=== PATIENT | male | born 1990 | race Caucasian/White ===

== ENCOUNTER 2016-11-19 14:15 | Emergency (ER) | payer OTHER ==
[2016-11-19] MEDS ORDERED: Ibuprofen TAB* 400 MG PO ONE (14:48)
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
--- NOTE | 2016-11-19 15:18 | RAD ---
INDICATION: Left chest and upper left side pain x4 days COMPARISON: Chest x-ray dated June 07, 2016 TECHNIQUE: 3 views of the AP chest and left ribs were obtained. FINDINGS: No fracture or significant focal osseous abnormality is seen. No pneumothorax is apparent. The heart and lungs appear normal in the AP projection. IMPRESSION: NO EVIDENCE FOR FRACTURE, IF THE PATIENT'S SYMPTOMS PERSIST RECOMMEND FOLLOW-UP IMAGING.
[2016-11-19 15:45] VITALS: BP 100/68
== END 2016-11-19 15:36 | disposition home or self-care (01) ==
LOC: ED 14:15
DX: S20.212A Contusion of left front wall of thorax, initial encounter (principal); W50.0XXA Accidental hit or strike by another person, initial encounter; Y93.89 Activity, other specified; Y92.89 Other specified places as the place of occurrence of the external cause
CPT/HCPCS: 99282; A9270-GY

== ENCOUNTER 2017-02-05 14:46 | Inpatient (IN) | payer MEDICAID, OTHER ==
[2017-02-05 15:31] LABS: Hematocrit 47 % (42-52); Hemoglobin 15.7 g/dl (14.0-18.0); Mean Corpuscular HGB Conc 34 g/dl (31-36); Mean Corpuscular Hemoglobin 31 pg (27-31); Mean Corpuscular Volume 92 fL (80-94); Mean Platelet Volume 10 um3 (7.4-10.4); Red Blood Count 5.09 10^6/ul (4.0-5.4); Red Cell Distribution Width 14 % (10.5-15); White Blood Count 9.6 10^3/ul (3.5-10.8)
[2017-02-05 15:36] LABS: Benzodiazepine Urine Screen None Detected (None Detect)
[2017-02-05 15:37] LABS: Urine Bacteria Absent (Absent); Urine Bilirubin Negative (Negative); Urine Glucose Negative (Negative); Urine Nitrite Negative (Negative)
[2017-02-05 15:46] LABS: ALT 13 U/L (7-52); AST 20 U/L (13-39); Albumin 4.2 g/dL (3.2-5.2); Alkaline Phosphatase 56 U/L (34-104); Anion Gap 6 mmol/L (2-11); BUN/Creatinine Ratio 12.8 (8-20); Blood Urea Nitrogen 11 mg/dL (6-24); CO2 Carbon Dioxide 25 mmol/L (22-32); Calcium 9.1 mg/dL (8.6-10.3); Chloride 106 mmol/L (101-111); EGFR African American 138.2 (>60); EGFR Non-African American 107.5 (>60); Globulin 2.9 g/dL (2-4); Glucose 99 mg/dL (70-100); Potassium 3.9 mmol/L (3.5-5.0); Sodium 137 mmol/L (133-145); Total Protein 7.1 g/dL (6.4-8.9)
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
[2017-02-05 16:23] LABS: Acetaminophen < 15 mcg/mL; Alcohol < 10 mg/dL (<10); Salicylate < 2.50 mg/dL (<30)
[2017-02-05 16:28] LABS: TSH (Thyroid Stimulating Horm) 0.55 mcIU/mL (0.34-5.60)
[2017-02-06] MEDS ORDERED: Al Hydrox/Mg Hydrox/Simet LIQ* 30 ML UDC PO PRN (00:57)
[2017-02-06] MEDS ORDERED: Mouth Piece, Nicotine* 1 EACH CARTRIDGE INH SCH (00:57)
[2017-02-06] MEDS: Vitamin THERAPEUTIC TAB PO SCH (09:17)
[2017-02-06] MEDS: Nicotine PATCH 21 MG/24 HR* PATCH TRANSDERM SCH (09:17)
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
[2017-02-06] MEDS: Sertraline* 50 MG TAB PO SCH (13:56)
[2017-02-06] MEDS: Nicotine Inhaler* 10 MG AMP INH PRN ×4 (13:56→22:15)
[2017-02-06] MEDS: Nicotine Patch Removal NOTE PATCH OFF SCH (20:20)
[2017-02-06] MEDS: traZODone TAB* 100 MG PO PRN (22:15)
[2017-02-07] MEDS: Vitamin THERAPEUTIC TAB PO SCH (08:21)
[2017-02-07] MEDS: Sertraline* 50 MG TAB PO SCH (08:21)
[2017-02-07] MEDS: Nicotine PATCH 21 MG/24 HR* PATCH TRANSDERM SCH (08:21)
[2017-02-07] MEDS: Nicotine Inhaler* 10 MG AMP INH PRN ×7 (08:22→21:11)
[2017-02-07] MEDS: Acetaminophen TAB* 325 MG PO PRN ×2 (10:01→15:13)
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
[2017-02-07] MEDS: Nicotine Patch Removal NOTE PATCH OFF SCH (20:12)
[2017-02-07] MEDS: traZODone TAB* 100 MG PO PRN (22:02)
[2017-02-08] MEDS: Nicotine PATCH 21 MG/24 HR* PATCH TRANSDERM SCH (08:13)
[2017-02-08] MEDS: Vitamin THERAPEUTIC TAB PO SCH (08:15)
[2017-02-08] MEDS: Nicotine Inhaler* 10 MG AMP INH PRN ×6 (08:15→21:03)
[2017-02-08] MEDS: Sertraline* 50 MG TAB PO SCH (08:16)
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
--- NOTE | 2017-02-08 13:08 | PN ---
[facility]: Group Therapy Note - Service Type Service Type: [id number] Group Psychotherapy - Cognitive Behavioral Group Therapy ( CBT):Patient was attentive and participatory in CBT programming this morning, and remained in good behavioral control. Patient expressed positive insights regarding relevant treatment interventions and goals.
[2017-02-08] MEDS: Acetaminophen TAB* 325 MG PO PRN (14:11)
[2017-02-08] MEDS: Nicotine Patch Removal NOTE PATCH OFF SCH (21:03)
[2017-02-08] MEDS: traZODone TAB* 100 MG PO PRN (22:04)
[2017-02-09] MEDS: Acetaminophen TAB* 325 MG PO PRN (04:17)
[2017-02-09] MEDS: Sertraline* 50 MG TAB PO SCH (08:03)
[2017-02-09] MEDS: Nicotine PATCH 21 MG/24 HR* PATCH TRANSDERM SCH (08:03)
[2017-02-09] MEDS: Vitamin THERAPEUTIC TAB PO SCH (08:03)
[2017-02-09] MEDS: Nicotine Inhaler* 10 MG AMP INH PRN (08:04)
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
[2017-02-09 10:33] VITALS: BP 123/65
== END 2017-02-09 09:55 | disposition home or self-care (01) | DRG 754 ==
LOC: ED 14:46 → BSU 22:30
PROVIDERS: ADMIT Psychiatry & Neurology Psychiatry; ATTEND Psychiatry & Neurology Psychiatry
DX: F43.21 Adjustment disorder with depressed mood (principal); R45.851 Suicidal ideations; F12.10 Cannabis abuse, uncomplicated; Z79.891 Long term (current) use of opiate analgesic
CPT/HCPCS: 36415; 80053; 80307; 80320; 80329; 81003; 81015; 84443; 85025; 87086; 90853; 99222; 99231; 99238; A9270-GY; G0480

== ENCOUNTER → 2017-02-15 09:32 | Emergency (ER) | payer MEDICAID, OTHER ==
[2017-02-15 09:43] VITALS: BP 122/76
== END | disposition left against medical advice (07) ==
LOC: ED 09:32
DX: K08.89 Other specified disorders of teeth and supporting structures (principal); Z53.21 Procedure and treatment not carried out due to patient leaving prior to being seen by health care provider

== ENCOUNTER 2017-07-18 14:12 | Emergency (ER) | payer SELFPAY ==
[2017-07-18] MEDS ORDERED: Ketorolac INJ* 60 MG/2 ML VIAL IM ONE (15:22)
[2017-07-18] MEDS ORDERED: Dexamethasone IV* 4 MG/ML 1 ML (4 MG) IM ONE (15:22)
[2017-07-18] MEDS ORDERED: Cyclobenzaprine TAB* 10 MG PO ONE (15:22)
--- NOTE | 2017-07-18 15:34 | ED ---
Back Pain - HPI Summary HPI Summary: 27 male presents to ED with complaints of right sided flank/back pain. Patient states it began about 3 days ago. States the pain came 3 days ago, went away, and then returned after returning back to daily activities and over use. States he woke up with it to begin with. Hurts worse with laying on that side or movement. Patient tried taking tylenol and ibuprofen without relief, last doses being yesterday. No known trauma or injury. Denies urinary symptoms such as frequency, urgency, difficulty and dysuria. States he was unable to sleep last night due to the discomfort, every time he turned he would wake up from the pain. Denies rash, being bit by a tick recently and fever. No nausea, vomiting or abdominal pain. Denies chest pain and trouble breathing. No other complaints. No PMHx. No other medications other than OTC analgesics. No radiation. No numbness/tingling or weakness. No saddle anesthesia, bladder/ bowel incontinence. No IV drug use. - History of Current Complaint Chief Complaint: EDBackInjuryPain Stated Complaint: LOW RIGHT SIDE BACK PAIN Time Seen by Provider: 07/18/17 14:57 Hx Obtained From: Patient Onset/Duration: Sudden Onset, Lasting Days, Still Present, Worse Since Onset/Duration: Started Days Ago Timing: Constant Back Pain Location: Is Discrete @ - right side back/flank Severity Initially: Mild Severity Currently: Moderate Pain Intensity: 6 Pain Scale Used: 0-10 Numeric Character: Aching Aggravating Symptom(s): Movement, Other - laying on that side, touch Alleviating Symptom(s): Rest, Position, OTC Meds - 600mg ibuprofen gave some relief Associated Signs And Symptoms: Positive: Flank Pain - right. Negative: Swelling , Redness, Bruising, Weakness, Numbness, Abdominal Pain, Bladder Incontinence, Bowel Incontinence, Pain with Weight Bearing - Risk Factors AAA Risk Factors: Negative TAD Risk Factors: Negative Cauda Equina Risk Factors: Negative Epidural Abscess Risk Factors: Negative - Allergies/Home Medications Allergies/Adverse Reactions: Allergies Allergy/AdvReac Type Severity Reaction Status Date / Time No Known Allergies Allergy Verified 07/18/17 14:16 PMH/Surg Hx/FS Hx/Imm Hx Endocrine/Hematology History: Denies: Hx Diabetes Cardiovascular History: Denies: Hx Hypertension Respiratory History: Denies: Hx Asthma Sensory History: Denies: Hx Contacts or Glasses, Hx Hearing Aid Opthamlomology History: Denies: Hx Contacts or Glasses Psychiatric History: Reports: Hx Anxiety, Hx Depression, Hx of Violent Episodes Against Others Denies: Hx Eating Disorder, Hx Inpatient Treatment, Hx Community Mental Health Tx, Hx Suicide Attempt, Hx Substance Abuse - Surgical History Surgery Procedure, Year, and Place: n/a - Immunization History Immunizations Up to Date: Yes Infectious Disease History: No Infectious Disease History: Denies: Traveled Outside the [place] in Last 30 Days - Family History Known Family History: Positive: None, Other - cervical CA - Social History Alcohol Use: Rare Hx Substance Use: No Substance Use Type: Reports: None Hx Tobacco Use: No Smoking Status (MU): Never Smoked Tobacco Amount Used/How Often: 1 PPD, has not used any other tobacco products in the last 30 days. Review of Systems Constitutional: Negative Cardiovascular: Negative Respiratory: Negative Positive: Arthralgia, Myalgia Skin: Negative Neurological: Negative All Other Systems Reviewed And Are Negative: Yes Physical Exam Triage Information Reviewed: Yes Vital Signs On Initial Exam: Initial Vitals Temp Pulse Resp BP Pulse Ox 98.0 F 66 20 125/61 99 07/18/17 14:15 07/18/17 14:15 07/18/17 14:15 07/18/17 14:15 07/18/17 14:15 Vital Signs Reviewed: Yes Appearance: Positive: Well-Appearing, No Pain Distress, Well-Nourished Skin: Positive: Warm, Skin Color Reflects Adequate Perfusion, Dry. Negative: Numb, Cyanosis @, Pale, Erythema @ Head/Face: Positive: Normal Head/Face Inspection Eyes: Positive: Conjunctiva Clear ENT: Positive: Hearing grossly normal Neck: Positive: Supple, Nontender Respiratory/Lung Sounds: Positive: Clear to Auscultation, Breath Sounds Present. Negative: Rales, Rhonchi, Wheezes Cardiovascular: Positive: Normal, RRR, Pulses are Symmetrical in both Upper and Lower Extremities - 2+ radial and pedal. Negative: Murmur, Rub Abdomen Description: Positive: Nontender, Soft, CVA Tenderness (R), CVA Tenderness (L). Negative: Bruit, Distended, Guarding, McBurney's Point Tenderness Bowel Sounds: Positive: Present Musculoskeletal: Positive: Normal, Strength/ROM Intact, Other - pain on palpation of right flank T12-L2 area. Negative: Limited @, Interruption @, Pain @, Edema Left, Edema Right Neurological: Positive: Normal, Sensory/Motor Intact, Alert, Oriented to Person Place, Time, CN Intact II-III, Reflexes Intact, NV Bundle Intact Distally, Normal Gait - Melita Coma Scale Coma Scale Total: 15 Diagnostics - Vital Signs Vital Signs Temp Pulse Resp BP Pulse Ox 07/18/17 14:15 98.0 F 66 20 125/61 99 - Laboratory Lab Statement: Any lab studies that have been ordered have been reviewed, and results considered in the medical decision making process. Re-Evaluation - Re-Evaluation First Eval Re-Evaluation Time: 16:00 Change: Improved - had some relief after medications, updated on urine results. discussed treatment and plan, patient agrees and understands, all questions answered. Will obtain CT due to blood in urine Back Pain Course/Dx - Course Course Of Treatment: urinalysis obtained and showed 2+ blood. due to blood in urine, description and location of patient's pain Ct scan ordered to rule out renal calculi. no concern for injury/bony injury requiring xray. given toradol, norflex and dexa had relief. appears to be MSK related however will wait CT results to rule out renal calucli, as this was also a patient concern. Patient was signed out to Ayanna Dee shift change pending CT results. - Diagnoses Differential Diagnosis/HQI/PQRI: Positive: Herniated Disc, Strain, Sprain, Other - renal calculi Provider Diagnoses: Flank pain - Provider Notifications Discussed Care Of Patient With: Ayanna Hodge PA-C Time Discussed With Above Provider: 16:00 Discharge - Discharge Plan Condition: Stable Disposition: OTHER Discharge Disposition Comment: signed out to Ayanna Hodge PA-C at shift change Prescriptions: Cyclobenzaprine TAB* [Flexeril 10 MG TAB*] 10 mg PO TID PRN #9 tab PRN Reason: Pain Lidocaine PATCH 5%* [Lidoderm 5% Patch*] 1 patch TRANSDERM DAILY #7 patch Patient Education Materials: Low Back Strain (ED), Acute Low Back Pain (ED) Referrals: [facility] [Outside] Additional Instructions: Rest, avoid strenuous activity. Heating pad during day ice at night. Take muscle relaxers three times a day Apply lidocaine patches to area for up to 12 hours in one 24 hour period Use ibuprofen or Tylenol for pain every 6 hours. Any new or worsening symptoms, as we discussed ( fever, increased pain, urinary difficulty, burning, pain, abdominal pain, nausea and vomiting) please return to ED promptly. Follow up with PCP.
[2017-07-18 15:58] LABS: Urine Bacteria Absent (Absent); Urine Bilirubin Negative (Negative); Urine Glucose Negative (Negative); Urine Nitrite Negative (Negative)
--- NOTE | 2017-07-18 16:38 | RAD ---
Indication: Evaluate for renal calculus. CT of the abdomen and pelvis was performed without oral or IV contrast administration. Coronal and sagittal reconstructed images were obtained. The lung bases demonstrate no pleural fluid, nodules or masses. Heart is of normal size without evidence of pericardial effusion. Liver is normal in size. No focal lesions or intrahepatic ductal dilatation is noted. The spleen is normal in size. The pancreas demonstrates no mass or pancreatic duct dilatation. The common duct is not dilated. No adrenal lesions are noted. The kidneys demonstrate no hydronephrosis in either kidney. No retroperitoneal lymphadenopathy is noted. Aorta and inferior vena cava are unremarkable. No dilated loops of bowel are noted. The colon is filled with stool. The prostate is otherwise unremarkable. No hernias are noted. No free fluid is identified. No hernias are noted. IMPRESSION: No evidence of obstructive uropathy is noted. No abnormal masses or fluid collections are noted.
--- NOTE | 2017-07-18 16:52 | PN ---
Progress Note - Progress Note Date of Service: 07/18/17 Note: patient signed out by Brenda HERNANDES pending CT CT: IMPRESSION: No evidence of obstructive uropathy is noted. No abnormal masses or fluid collections are noted. discussed results with patient. patient feeling better with treatment provided in ED so will send script for flexeril and lidocaine patch in continue at home. explained pain likely muscular. told to establish care with primary. patient understand and agrees with plan Diagnosis: back pain Condition: stable Disposition: home
[2017-07-18 17:14] VITALS: BP 138/65
== END 2017-07-18 17:15 ==
LOC: ED 14:12
DX: R10.84 Generalized abdominal pain (principal)
CPT/HCPCS: 74176; 81003; 81015; 96372; 99282; A9270-GY; J1100; J1885

== ENCOUNTER 2017-08-27 18:08 | Emergency (ER) | payer SELFPAY ==
[2017-08-27 18:13] VITALS: BP 133/78
[2017-08-27] MEDS ORDERED: Clindamycin CAP* 150 MG PO ONE ×2 (19:00)
[2017-08-27] MEDS ORDERED: Ibuprofen TAB* 800 MG PO ONE (19:00)
--- NOTE | 2017-08-27 19:16 | ED ---
Throat Pain/Nasal Congestion - HPI Summary HPI Summary: Pt here w/ Rt lower jaw swelling x 5 days. Believes it's from a tooth infection as he's had these before. Started taking a friend's augmentin for a couple of days but no relief so started taking some old left over clindamycin for a couple days - no change. Had an odd taste in his mouth today - drainage? Denies fever, chills, nausea, vomiting, neck pain, headache, otalgia. Insurance ran out so hasn't called dentist yet but plans on reapplying for this - will call tomorrow to establish insurance and make appt w/ dentist. - History of Current Complaint Chief Complaint: EDDentalPain Time Seen by Provider: 08/27/17 18:19 Hx Obtained From: Patient, Family/Aligner - male friend - Allergies/Home Medications Allergies/Adverse Reactions: Allergies Allergy/AdvReac Type Severity Reaction Status Date / Time No Known Allergies Allergy Verified 07/18/17 14:16 PMH/Surg Hx/FS Hx/Imm Hx Previously Healthy: Yes Endocrine/Hematology History: Denies: Hx Diabetes Cardiovascular History: Denies: Hx Hypertension Respiratory History: Denies: Hx Asthma Sensory History: Denies: Hx Contacts or Glasses, Hx Hearing Aid Opthamlomology History: Denies: Hx Contacts or Glasses Psychiatric History: Reports: Hx Anxiety, Hx Depression, Hx of Violent Episodes Against Others Denies: Hx Eating Disorder, Hx Inpatient Treatment, Hx Community Mental Health Tx, Hx Suicide Attempt, Hx Substance Abuse - Surgical History Surgery Procedure, Year, and Place: n/a Infectious Disease History: No Infectious Disease History: Denies: Traveled Outside the [place] in Last 30 Days - Family History Known Family History: Positive: None, Other - cervical CA - Social History Occupation: Unemployed Lives: Dormitory/Roommates - floating from house to house w/ friends Alcohol Use: Rare Hx Substance Use: No Substance Use Type: Reports: Marijuana Hx Tobacco Use: Yes Smoking Status (MU): Current Every Day Smoker - trying to quit - has patches and nicotrol inhaler Amount Used/How Often: 1 PPD, has not used any other tobacco products in the last 30 days. Review of Systems Constitutional: Negative Negative: Fever, Chills, Fatigue Eyes: Negative Positive: Dental Pain. Negative: Sore Throat, Ear Ache, Nasal Discharge Cardiovascular: Negative Respiratory: Negative Negative: Shortness Of Breath Gastrointestinal: Negative Positive: no symptoms reported Musculoskeletal: Negative Skin: Negative Neurological: Negative Psychological: Normal All Other Systems Reviewed And Are Negative: Yes Physical Exam Triage Information Reviewed: Yes Vital Signs On Initial Exam: Initial Vitals Temp Pulse Resp BP Pulse Ox 99.0 F 76 16 133/78 100 08/27/17 18:08 08/27/17 18:08 08/27/17 18:08 08/27/17 18:08 08/27/17 18:08 Vital Signs Reviewed: Yes Appearance: Positive: Well-Appearing, Pain Distress - mild Skin: Positive: Warm, Dry - no overlying erythema Head/Face: Positive: Other - Rt lower jaw/cheek w/ focal edema - TTP - on opposing side of lip within buccal mucosa, there is erythema and edema with a central opening which is draining seropurulent d/c Eyes: Positive: Normal, EOMI, Conjunctiva Clear. Negative: Conjunctiva Inflammed, Discharge ENT: Positive: Normal ENT inspection, Hearing grossly normal, Pharynx normal. Negative: Nasal congestion, Nasal drainage Dental: Positive: Gross Decay/Caries @ - diffuse Neck: Positive: Supple, Nontender, No Lymphadenopathy Respiratory/Lung Sounds: Positive: Breath Sounds Present. Negative: Stridor, Wheezes Cardiovascular: Positive: Normal Musculoskeletal: Positive: Normal, Strength/ROM Intact Neurological: Positive: Normal, Sensory/Motor Intact, Alert, Oriented to Person Place, Time, CN Intact II-III Psychiatric: Positive: Normal - [place] Coma Scale Coma Scale Total: 15 Diagnostics - Vital Signs Vital Signs Temp Pulse Resp BP Pulse Ox 08/27/17 18:08 99.0 F 76 16 133/78 100 - Laboratory Lab Statement: Any lab studies that have been ordered have been reviewed, and results considered in the medical decision making process. EENT Course/Dx - Course Course Of Treatment: Suspect abscess arose from dental impairment - since it's already draining which seems to have started today, provided guidance on how to continue drainage. Anbx rx'd and advised f/u w/ dental. He will return to ED if danger s/sx present. - Diagnoses Provider Diagnoses: Abscess of mouth Discharge - Discharge Plan Condition: Stable Disposition: HOME Prescriptions: Chlorhexidine MOUTHWASH 0.12%* [Peridex Mouth Wash 0.12%*] 15 ml MT BID #1 btl Clindamycin HCl [Clindamycin 150 MG CAP*] 300 mg PO Q8HR #27 cap Ibuprofen TAB* [Motrin TAB* 600 MG] 600 mg PO Q6H PRN #20 tab PRN Reason: Pain Patient Education Materials: Dental Abscess (ED) Referrals: No Primary Care Phys,NOPCP [Primary Care Provider] - Additional Instructions: Complete antibiotic capsules and mouthwash as directed Use warm compress to soften abscess and encouraged continued draining Use salt water rinses to reduce swelling/encourage drainage You may take ibuprofen with food for pain/swelling Follow-up with dentist MEGHANN - call tomorrow to schedule an appointment *If you develop headache, eye pain, neck pain, fever, worsening of facial swelling, trouble breathing or swallowing, return to ED
== END 2017-08-27 19:19 | disposition home or self-care (01) ==
LOC: ED 18:08
DX: K12.2 Cellulitis and abscess of mouth (principal); K08.89 Other specified disorders of teeth and supporting structures; F17.210 Nicotine dependence, cigarettes, uncomplicated
CPT/HCPCS: 99282; A9270-GY

== ENCOUNTER 2017-10-14 12:21 | Emergency (ER) | payer MEDICAID ==
[2017-10-14] MEDS ORDERED: Orphenadrine Citrate IV* 30 MG/ML 2 ML VIAL IM ONE (14:44)
[2017-10-14] MEDS ORDERED: Ketorolac INJ* 60 MG/2 ML VIAL IM ONE (14:44)
--- NOTE | 2017-10-14 14:49 | ED ---
Back Pain - HPI Summary HPI Summary: 27 male presents to ED with complaints of mid back pain that began yesterday and has worsened today. States he was just sitting when he began to have a pressure sensation in his epigastric abdomen after drinking soda, improved after a few minutes however then move to his mid back. Tried taking ibuprofen and 1 gabapentin without much relief. Patient states he has had similar back pain however in a lower area rather than mid back like now. Denies known fever however felt like he had chills yesterday. Denies urinary frequency, urgency, burning or concern for STDs. No other complaints. No abdominal pain or nausea/ vomiting. Normal bowel movements. No SOB or chest pain. No recent known trauma or injury. No other complaints. Has not taken any medication today. No PMHx other than frequent dental abscesses. Also tried having his significant other massage back without relief. Laying down makes pain worse, sitting makes it somewhat better. Describes it as a dull ache that worsens when laying and becomes sharp. No swelling, bruising, edema, numbness/tingling, saddle anesthesia, weakness or bladder/bowel incontinence. - History of Current Complaint Chief Complaint: EDBackInjuryPain Stated Complaint: BACK PAIN Time Seen by Provider: 10/14/17 12:31 Hx Obtained From: Patient Onset/Duration: Sudden Onset, Lasting Days - 1-2, Still Present, Worse Since Onset/Duration: Started Days Ago - yesterday, Still Present Timing: Constant Back Pain Location: Is Discrete @ - mid back t10-L2 region Severity Initially: Moderate Severity Currently: Moderate Pain Intensity: 7 Pain Scale Used: 0-10 Numeric Character: Aching Aggravating Symptom(s): Other - laying Alleviating Symptom(s): Position Associated Signs And Symptoms: Positive: Negative. Negative: Swelling, Redness , Bruising, Weakness, Numbness, Tingling, Abdominal Pain, Bladder Incontinence, Bowel Incontinence, Weight Loss, Pain with Weight Bearing - Risk Factors AAA Risk Factors: Smoking TAD Risk Factors: Smoking Cauda Equina Risk Factors: Negative Epidural Abscess Risk Factors: Negative - Allergies/Home Medications Allergies/Adverse Reactions: Allergies Allergy/AdvReac Type Severity Reaction Status Date / Time No Known Allergies Allergy Verified 07/18/17 14:16 PMH/Surg Hx/FS Hx/Imm Hx Endocrine/Hematology History: Denies: Hx Diabetes Cardiovascular History: Denies: Hx Hypertension Respiratory History: Denies: Hx Asthma Sensory History: Denies: Hx Contacts or Glasses, Hx Hearing Aid Opthamlomology History: Denies: Hx Contacts or Glasses Psychiatric History: Reports: Hx Anxiety, Hx Depression, Hx of Violent Episodes Against Others Denies: Hx Eating Disorder, Hx Inpatient Treatment, Hx Community Mental Health Tx, Hx Suicide Attempt, Hx Substance Abuse - Surgical History Surgery Procedure, Year, and Place: n/a - Immunization History Immunizations Up to Date: Yes Infectious Disease History: No Infectious Disease History: Denies: Traveled Outside the US in Last 30 Days - Family History Known Family History: Positive: None, Other - cervical CA - Social History Alcohol Use: Rare Hx Substance Use: No Substance Use Type: Reports: Marijuana Hx Tobacco Use: Yes Smoking Status (MU): Current Every Day Smoker Amount Used/How Often: 1 PPD, has not used any other tobacco products in the last 30 days. Review of Systems Constitutional: Negative Cardiovascular: Negative Respiratory: Negative Positive: Arthralgia, Myalgia Skin: Negative Neurological: Negative All Other Systems Reviewed And Are Negative: Yes Physical Exam Triage Information Reviewed: Yes Vital Signs On Initial Exam: Initial Vitals Temp Pulse Resp BP Pulse Ox 99.2 F 81 20 129/76 98 10/14/17 12:27 10/14/17 12:27 10/14/17 12:27 10/14/17 12:27 10/14/17 12:27 Vital Signs Reviewed: Yes Appearance: Positive: Well-Appearing, No Pain Distress, Well-Nourished Skin: Positive: Warm, Skin Color Reflects Adequate Perfusion, Dry. Negative: Cold, Cyanosis @, Pale, Erythema @ Head/Face: Positive: Normal Head/Face Inspection ENT: Positive: Hearing grossly normal Neck: Positive: Supple, Nontender Respiratory/Lung Sounds: Positive: Clear to Auscultation, Breath Sounds Present. Negative: Rales, Rhonchi, Wheezes Cardiovascular: Positive: Normal, RRR, Pulses are Symmetrical in both Upper and Lower Extremities - 2+. Negative: Murmur, Rub Abdomen Description: Positive: Nontender, No Organomegaly, Soft, CVA Tenderness (R), CVA Tenderness (L). Negative: Distended, Guarding, Peritoneal Signs, Pulsatile Mass Bowel Sounds: Positive: Present Musculoskeletal: Positive: Normal, Strength/ROM Intact, Pain @ - T10-L2 area, Other - no crepitus step off or obvious deformity. Negative: Limited @, Interruption @, Edema Left, Edema Right Neurological: Positive: Normal, Sensory/Motor Intact, Alert, Oriented to Person Place, Time, Reflexes Intact, NV Bundle Intact Distally, Normal Gait Diagnostics - Vital Signs Vital Signs Temp Pulse Resp BP Pulse Ox 10/14/17 12:27 99.2 F 81 20 129/76 98 - Laboratory Lab Statement: Any lab studies that have been ordered have been reviewed, and results considered in the medical decision making process. - CT thoracic, lumbosacral CT Interpretation: No Acute Changes - MILD DEGENERATIVE DISC DISEASE AND FACET OSTEOARTHRITIS. There is a mild dorsal scoliosis convex toward the right side. The vertebra are otherwise in normal alignment. No fracture is seen. There is mild anterior endplate spurring at the T2-T3 level. The intervertebral disc spaces appear relatively maintained. No significant spinal canal narrowing is seen. There is mild bilateral apical pleural-parenchymal scarring. IMPRESSION : NO EVIDENCE FOR FRACTURE OR SPINAL CANAL NARROWING. IF THE PATIENT'S SYMPTOMS PERSIST RECOMMEND FOLLOW-UP MR IMAGING. CT Interpretation Completed By: Radiologist Re-Evaluation - Re-Evaluation First Eval Re-Evaluation Time: 15:30 Change: Improved - had relief after medication, updated on imaging results. waiting on urinalysis. Second Eval Re-Evaluation Time: 16:00 Change: Improved - feeling better, updated on results, ready to be d/c Back Pain Course/Dx - Diagnoses Provider Diagnoses: Back pain Discharge - Discharge Plan Condition: Stable Disposition: HOME Patient Education Materials: Back Pain (ED) Referrals: [facility] [place] [facility] [Outside] Additional Instructions: Take prescribed medication to help with pain. Take for the next 3-5 for them to take full effect. Rest and heat/ice. Avoid heavy lifting and strenuous exercise. Any new or worsening symptoms please seek medical attention promptly. Follow up with pcp.
--- NOTE | 2017-10-14 15:16 | RAD ---
INDICATION: Back pain. COMPARISON: There are no prior studies available for comparison. TECHNIQUE: Contiguous axial sections were obtained beginning above the T12 vertebra and continuing through the L5-S1 disc space. Images were reconstructed in the sagittal and coronal planes. FINDINGS: The vertebra are in normal alignment. No fracture is seen. At the L4-L5 level there is a mild broad-based disc bulge. No significant spinal canal or neural foraminal narrowing is seen. At the L5-S1 level there is a mild broad-based disc bulge and mild hypertrophic changes within the facet joints. No significant spinal canal or neural foraminal narrowing is seen. IMPRESSION: MILD DEGENERATIVE DISC DISEASE AND FACET OSTEOARTHRITIS.
--- NOTE | 2017-10-14 15:25 | RAD ---
INDICATION: Back pain. COMPARISON: There are no prior studies available for comparison. TECHNIQUE: Contiguous axial sections were obtained beginning above the C7 vertebra and scanning through the T12 vertebra. Images were reconstructed in the sagittal and coronal planes. FINDINGS: There is a mild dorsal scoliosis convex toward the right side. The vertebra are otherwise in normal alignment. No fracture is seen. There is mild anterior endplate spurring at the T2-T3 level. The intervertebral disc spaces appear relatively maintained. No significant spinal canal narrowing is seen. There is mild bilateral apical pleural-parenchymal scarring. IMPRESSION: NO EVIDENCE FOR FRACTURE OR SPINAL CANAL NARROWING. IF THE PATIENT'S SYMPTOMS PERSIST RECOMMEND FOLLOW-UP MR IMAGING.
[2017-10-14 15:54] LABS: Urine Appearance Clear; Urine Blood 1+ (Negative); Urine Color Yellow; Urine Ketones Negative (Negative); Urine Protein Negative (Negative); Urine Specific Gravity 1.012 (1.010-1.030); Urine Urobilinogen Negative (Negative)
[2017-10-14 16:21] VITALS: BP 124/62
== END 2017-10-14 16:20 | disposition home or self-care (01) ==
LOC: ED 12:21
DX: M54.9 Dorsalgia, unspecified (principal); M51.36 Other intervertebral disc degeneration, lumbar region; M47.816 Spondylosis without myelopathy or radiculopathy, lumbar region; F41.9 Anxiety disorder, unspecified; F32.9 Major depressive disorder, single episode, unspecified; F17.210 Nicotine dependence, cigarettes, uncomplicated
CPT/HCPCS: 72128; 72131; 81003; 81015; 96372; 99282; J1885; J2360

== ENCOUNTER 2017-12-24 16:05 | Emergency (ER) | payer MEDICAID, OTHER ==
[2017-12-24 17:21] LABS: ABS Basophils 0 10^3/ul (0-0.2); ABS Eosinophils 0.1 10^3/ul (0-0.6); ABS Lymphocytes 1.9 10^3/ul (1.0-4.8); ABS Monocytes 0.9 10^3/ul (0-0.8); ABS Neutrophils 5.8 10^3/ul (1.5-7.7); ABS Nucleated RBC 0 10^3/ul; Eosinophil % 1.1 % (0-6); Hematocrit 47 % (42-52); Hemoglobin 16.3 g/dl (14.0-18.0); Lymphocyte % 22.1 % (25-47); Mean Corpuscular HGB Conc 35 g/dl (31-36); Mean Corpuscular Hemoglobin 31 pg (27-31); Mean Corpuscular Volume 91 fL (80-94); Mean Platelet Volume 9.9 um3 (7.4-10.4); Nucleated Red Blood Cells % 0.1; Platelet Count 191 10^3/ul (150-450); Red Blood Count 5.18 10^6/ul (4.0-5.4); Red Cell Distribution Width 13 % (10.5-15); White Blood Count 8.8 10^3/ul (3.5-10.8)
[2017-12-24 17:34] LABS: INR 0.99 (0.77-1.02)
[2017-12-24 17:40] LABS: EGFR Non-African American 96.3 (>60)
[2017-12-24 17:44] LABS: Urine Appearance Clear; Urine Blood Negative (Negative); Urine Color Yellow; Urine Ketones Trace (Negative); Urine Protein Negative (Negative); Urine Urobilinogen Negative (Negative)
[2017-12-24] MEDS ORDERED: Pantoprazole IV* 40 MG IV ONE (18:59)
[2017-12-24] MEDS ORDERED: Lidocaine 2% VISCOUS* 15 ML UDC PO ONE (19:01)
[2017-12-24] MEDS ORDERED: Al Hydrox/Mg Hydrox/Simet LIQ* 30 ML UDC PO ONE (19:01)
[2017-12-24] MEDS ORDERED: Famotidine TAB* 20 MG PO ONE (19:02)
[2017-12-24] MEDS ORDERED: NS 0.9% 1000 ML* 1,000 ML IV ONE (19:03)
--- NOTE | 2017-12-24 20:38 | ED ---
GI/ HPI - HPI Summary HPI Summary: 27-year-old male presents with vomiting blood since Sunday. He states that it started after he been vomiting couple times and then develop a large amount of blood in his vomit. He states that since then has been happening every night and it happened a couple times in the morning. He admits to occasional epigastric pain. He denies any melena or blood in his stool. He denies any pain with urination. Denies any flank pain. Denies any cough. He denies any chest pain or shortness breath it is never happened before. He states he does not drink alcohol often. He does not take ibuprofen much currently. He does have a history of alcohol and ibuprofen although nothing in the past couple months. He denies any diarrhea constipation. - History of Current Complaint Chief Complaint: EDAbdPain Time Seen by Provider: 12/24/17 18:48 Stated Complaint: VOMITING BLOOD Pain Intensity: 5 - Additional Pertinent History Primary Care Physician: [id number] - Allergy/Home Medications Allergies/Adverse Reactions: Allergies Allergy/AdvReac Type Severity Reaction Status Date / Time No Known Allergies Allergy Verified 07/18/17 14:16 PMH/Surg Hx/FS Hx/Imm Hx Endocrine/Hematology History: Denies: Hx Diabetes Cardiovascular History: Denies: Hx Hypertension Respiratory History: Denies: Hx Asthma Sensory History: Denies: Hx Contacts or Glasses, Hx Hearing Aid Opthamlomology History: Denies: Hx Contacts or Glasses Psychiatric History: Reports: Hx Anxiety, Hx Depression, Hx of Violent Episodes Against Others Denies: Hx Eating Disorder, Hx Inpatient Treatment, Hx Community Mental Health Tx, Hx Suicide Attempt, Hx Substance Abuse - Surgical History Surgery Procedure, Year, and Place: n/a Infectious Disease History: No Infectious Disease History: Denies: Traveled Outside the US in Last 30 Days - Family History Known Family History: Positive: None, Other - cervical CA - Social History Alcohol Use: Occasionally Alcohol Amount: used to be daily Hx Substance Use: No Substance Use Type: Reports: Marijuana Hx Tobacco Use: Yes Smoking Status (MU): Current Every Day Smoker Amount Used/How Often: 1 PPD, has not used any other tobacco products in the last 30 days. Review of Systems Negative: Fever Negative: Chest Pain Negative: Shortness Of Breath Positive: Abdominal Pain, Vomiting, Nausea. Negative: Diarrhea All Other Systems Reviewed And Are Negative: Yes Physical Exam Triage Information Reviewed: Yes Vital Signs On Initial Exam: Initial Vitals Temp Pulse Resp BP Pulse Ox 98.7 F 87 16 119/67 99 12/24/17 16:17 12/24/17 16:17 12/24/17 16:17 12/24/17 16:17 12/24/17 16:17 Vital Signs Reviewed: Yes Appearance: Positive: Well-Appearing Skin: Positive: Warm, Dry Head/Face: Positive: Normal Head/Face Inspection Eyes: Positive: Normal, EOMI, ERICKA, Conjunctiva Clear ENT: Positive: Normal ENT inspection, Pharynx normal Dental: Positive: Percussion Tenderness @ Respiratory/Lung Sounds: Positive: Clear to Auscultation, Breath Sounds Present Cardiovascular: Positive: Normal, RRR Abdomen Description: Positive: Nontender, Soft Bowel Sounds: Positive: Present Musculoskeletal: Positive: Normal Neurological: Positive: Normal Psychiatric: Positive: Normal Diagnostics - Vital Signs Vital Signs Temp Pulse Resp BP Pulse Ox 12/24/17 18:56 74 130/90 99 12/24/17 16:17 98.7 F 87 16 119/67 99 - Laboratory Lab Results: Lab Results 12/24/17 12/24/17 12/24/17 Range/Units 17:08 17:08 17:08 WBC 8.8 (3.5-10.8) 10^3/ul RBC 5.18 (4.0-5.4) 10^6/ul Hgb 16.3 (14.0-18.0) g/dl Hct 47 (42-52) % MCV 91 (80-94) fL MCH 31 (27-31) pg MCHC 35 (31-36) g/dl RDW 13 (10.5-15) % Plt Count 191 (150-450) 10^3/ul MPV 9.9 (7.4-10.4) um3 Neut % (Auto) 66.2 (38-83) % Lymph % (Auto) 22.1 L (25-47) % Faulk % (Auto) 10.3 H (0-7) % Eos % (Auto) 1.1 (0-6) % Baso % (Auto) 0.3 (0-2) % Absolute Neuts (auto) 5.8 (1.5-7.7) 10^3/ul Absolute Lymphs (auto) 1.9 (1.0-4.8) 10^3/ul Absolute Monos (auto) 0.9 H (0-0.8) 10^3/ul Absolute Eos (auto) 0.1 (0-0.6) 10^3/ul Absolute Basos (auto) 0 (0-0.2) 10^3/ul Absolute Nucleated RBC 0 10^3/ul Nucleated RBC % 0.1 INR (Anticoag Therapy) 0.99 (0.77-1.02) APTT 30.7 (26.0-36.3) seconds Sodium 137 L (139-145) mmol/L Potassium 3.9 (3.5-5.0) mmol/L Chloride 101 (101-111) mmol/L Carbon Dioxide 30 (22-32) mmol/L Anion Gap 6 (2-11) mmol/L BUN 15 (6-24) mg/dL Creatinine 0.94 (0.67-1.17) mg/dL Est GFR ( Amer) 123.8 (>60) Est GFR (Non-Af Amer) 96.3 (>60) BUN/Creatinine Ratio 16.0 (8-20) Glucose 81 (70-100) mg/dL Calcium 9.4 (8.6-10.3) mg/dL Magnesium 2.2 (1.9-2.7) mg/dL Total Bilirubin 0.60 (0.2-1.0) mg/dL AST 19 (13-39) U/L ALT 15 (7-52) U/L Alkaline Phosphatase 48 (34-104) U/L C-Reactive Protein < 1.00 (< 5.00) mg/L Total Protein 7.3 (6.4-8.9) g/dL Albumin 4.4 (3.2-5.2) g/dL Globulin 2.9 (2-4) g/dL Albumin/Globulin Ratio 1.5 (1-3) Lipase 16 (11.0-82.0) U/L Urine Color Urine Appearance Urine pH (5-9) Ur Specific [place] (1.010-1.030) Urine Protein (Negative) Urine Ketones (Negative) Urine Blood (Negative) Urine Nitrate (Negative) Urine Bilirubin (Negative) Urine Urobilinogen (Negative) Ur Leukocyte Esterase (Negative) Urine Glucose (Negative) Urine Ascorbic Acid (Negative) 04/30/18 Range/Units 17:21 WBC (3.5-10.8) 10^3/ul RBC (4.0-5.4) 10^6/ul Hgb (14.0-18.0) g/dl Hct (42-52) % MCV (80-94) fL MCH (27-31) pg MCHC (31-36) g/dl RDW (10.5-15) % Plt Count (150-450) 10^3/ul MPV (7.4-10.4) um3 Neut % (Auto) (38-83) % Lymph % (Auto) (25-47) % Faulk % (Auto) (0-7) % Eos % (Auto) (0-6) % Baso % (Auto) (0-2) % Absolute Neuts (auto) (1.5-7.7) 10^3/ul Absolute Lymphs (auto) (1.0-4.8) 10^3/ul Absolute Monos (auto) (0-0.8) 10^3/ul Absolute Eos (auto) (0-0.6) 10^3/ul Absolute Basos (auto) (0-0.2) 10^3/ul Absolute Nucleated RBC 10^3/ul Nucleated RBC % INR (Anticoag Therapy) (0.77-1.02) APTT (26.0-36.3) seconds Sodium (139-145) mmol/L Potassium (3.5-5.0) mmol/L Chloride (101-111) mmol/L Carbon Dioxide (22-32) mmol/L Anion Gap (2-11) mmol/L BUN (6-24) mg/dL Creatinine (0.67-1.17) mg/dL Est GFR ( Amer) (>60) Est GFR (Non-Af Amer) (>60) BUN/Creatinine Ratio (8-20) Glucose (70-100) mg/dL Calcium (8.6-10.3) mg/dL Magnesium (1.9-2.7) mg/dL Total Bilirubin (0.2-1.0) mg/dL AST (13-39) U/L ALT (7-52) U/L Alkaline Phosphatase (34-104) U/L C-Reactive Protein (< 5.00) mg/L Total Protein (6.4-8.9) g/dL Albumin (3.2-5.2) g/dL Globulin (2-4) g/dL Albumin/Globulin Ratio (1-3) Lipase (11.0-82.0) U/L Urine Color Yellow Urine Appearance Clear Urine pH 5.0 (5-9) Ur Specific [place] 1.030 (1.010-1.030) Urine Protein Negative (Negative) Urine Ketones Trace A (Negative) Urine Blood Negative (Negative) Urine Nitrate Negative (Negative) Urine Bilirubin Negative (Negative) Urine Urobilinogen Negative (Negative) Ur Leukocyte Esterase Negative (Negative) Urine Glucose Negative (Negative) Urine Ascorbic Acid * A (Negative) Result Diagrams: 12/24/17 17:08 12/24/17 17:08 Lab Statement: Any lab studies that have been ordered have been reviewed, and results considered in the medical decision making process. GIGU Course/Dx - Course Course Of Treatment: 27-year-old male presents with vomiting blood since Sunday. He states that it started after he been vomiting couple times and then develop a large amount of blood in his vomit. He states that since then has been happening every night and it happened a couple times in the morning. He admits to occasional epigastric pain. He denies any melena or blood in his stool. He denies any pain with urination. Denies any flank pain. Denies any cough. He denies any chest pain or shortness breath it is never happened before. He states he does not drink alcohol often. He does not take ibuprofen much currently. He does have a history of alcohol and ibuprofen although nothing in the past couple months. He denies any diarrhea constipation. On exam abdomen soft nontender. Gave Protonix and Pepcid and feeling better. Labs within normal limits and vitals normal. Discussed with Dr. Aragon and can follow-up outpatient. Patient understands agrees with plan. - Diagnoses Differential Diagnoses - Male: Esophagitis/Gastritis, Gastritis, Gastroenteritis (Bacterial), Gastroenteritis (Viral) Provider Diagnoses: Hematemesis Discharge - Sign-Out/Discharge Documenting (check all that apply): Discharge/Admit/Transfer - Discharge Plan Condition: Good Disposition: HOME Prescriptions: Al Hydrox/Mg Hydrox/Simet LIQ* [Maalox Plus*] 30 ml PO Q6H PRN #1 bottle PRN Reason: Dyspepsia Famotidine TAB* [Pepcid 20 MG TAB*] 20 mg PO BID #28 tab Omeprazole CAP* [Prilosec CAP* 20 MG] 20 mg PO DAILY #30 denise. Ondansetron ODT TAB* [Zofran 4 MG Odt TAB*] 4 mg PO Q6H PRN #16 tab.odt PRN Reason: Nausea Patient Education Materials: Hematemesis (ED) Referrals: Karan Israel MD [Medical Doctor] - [facility] [place] [facility] [Outside] Additional Instructions: Take omeprazole once a day take pepcid twice a day Take Maalox 30ml every 6 hours for epigastric pain as needed Avoid acidic foods Elevated head of bed Stay upright for at least 30 mins after eating Can take Zofran every 6 hours as needed for nausea Drink small amounts of fluid as tolerated Establish care with primary, follow up with GI Return to ED if develop any new or worsening symptoms - Billing Disposition and Condition Condition: GOOD Disposition: HOME
[2017-12-24 20:51] VITALS: BP 114/64
== END 2017-12-24 20:51 | disposition home or self-care (01) ==
LOC: ED 16:05
DX: K92.0 Hematemesis (principal); F17.210 Nicotine dependence, cigarettes, uncomplicated; F32.9 Major depressive disorder, single episode, unspecified
CPT/HCPCS: 36415; 80053; 81003; 83690; 83735; 85025; 85610; 85730; 86140; 96360; 96374; 99283; A9270-GY

== ENCOUNTER 2018-03-07 04:26 | Emergency (ER) | payer OTHER ==
--- NOTE | 2018-03-07 04:51 | ED ---
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 Per the police, the patient was called in by a cable installer repairer helper and was picked up downtown. He was taken to his friends apartment, however he did not recognize which apartment it was and couldnt recall his friends name. He only knew that his friend drove a spigit Civic. Per the police , the patient is homeless. The patient reports that he is originally from [place] and has been in [place] for 3 years. His left him with his kids. He reports he is suicidal. Symptoms aggravated by nothing. Symptoms alleviated by nothing. - History Of Current Complaint Chief Complaint: EDMentalHealth Stated Complaint: 2208 Time Seen by Provider: 03/07/18 04:32 Hx Obtained From: Patient, Other: - police Onset/Duration of Drug/ETOH Abuse: Minutes Character: Other - suicidal Aggravating Factor(s): Nothing Alleviating Factor(s): Nothing Associated Signs And Symptoms: Other: - SI - Allergies/Home Medications Allergies/Adverse Reactions: Allergies Allergy/AdvReac Type Severity Reaction Status Date / Time No Known Allergies Allergy Verified 03/07/18 04:32 PMH/Surg Hx/FS Hx/Imm Hx Endocrine/Hematology History: Denies: Hx Diabetes Cardiovascular History: Denies: Hx Hypertension Respiratory History: Denies: Hx Asthma Sensory History: Denies: Hx Contacts or Glasses, Hx Hearing Aid Opthamlomology History: Denies: Hx Contacts or Glasses Psychiatric History: Reports: Hx Anxiety, Hx Depression, Hx of Violent Episodes Against Others Denies: Hx Eating Disorder, Hx Inpatient Treatment, Hx Community Mental Health Tx, Hx Suicide Attempt, Hx Substance Abuse - Surgical History Surgery Procedure, Year, and Place: n/a Infectious Disease History: No Infectious Disease History: Denies: Traveled Outside the [place] in Last 30 Days - Family History Known Family History: Positive: Other - cervical CA - Social History Alcohol Use: Occasionally Alcohol Amount: used to be daily Hx Substance Use: No Substance Use Type: Reports: Marijuana Hx Tobacco Use: Yes Smoking Status (MU): Current Every Day Smoker Amount Used/How Often: 1 PPD, has not used any other tobacco products in the last 30 days. Review of Systems Positive: Other - ETOH intoxication Psychological: Other - SI All Other Systems Reviewed And Are Negative: Yes Physical Exam - Summary Physical Exam Summary: VITAL SIGNS: Reviewed. GENERAL: Patient is a well-developed and nourished MALE who is lying comfortable in the stretcher. Patient is not in any acute respiratory distress. He is intoxicated, tearful, and states "no needles!". HEAD AND FACE: No signs of trauma. No ecchymosis, hematomas or skull depressions. No sinus tenderness. EYES: PERRLA, EOMI x 2, No injected conjunctiva, no nystagmus. EARS: Hearing grossly intact. Ear canals and tympanic membranes are within normal limits. MOUTH: Oropharynx within normal limits. NECK: Supple, trachea is midline, no adenopathy, no JVD, no carotid bruit, no c- spine tenderness, neck with full ROM. CHEST: Symmetric, no tenderness at palpation LUNGS: Clear to auscultation bilaterally. No wheezing or crackles. CVS: Regular rate and rhythm, S1 and S2 present, no murmurs or gallops appreciated. ABDOMEN: Soft, non-tender. No signs of distention. No rebound no guarding, and no masses palpated. Bowel sounds are normal. EXTREMITIES: FROM in all major joints, no edema, no cyanosis or clubbing. NEURO: Alert and oriented x 3. No acute neurological deficits. Speech is normal and follows commands. SKIN: Dry and warm Triage Information Reviewed: Yes Vital Signs On Initial Exam: Initial Vitals Temp Pulse Resp BP Pulse Ox 97.6 F 94 18 140/94 100 03/07/18 04:33 03/07/18 04:33 03/07/18 04:33 03/07/18 04:33 03/07/18 04:33 Vital Signs Reviewed: Yes Diagnostics - Vital Signs Vital Signs Temp Pulse Resp BP Pulse Ox 03/07/18 04:33 97.6 F 94 18 140/94 100 - Laboratory Result Diagrams: 03/07/18 05:27 03/07/18 05:27 Lab Statement: Any lab studies that have been ordered have been reviewed, and results considered in the medical decision making process. 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 This patient will be signed out to Dr. Robertson, awaiting drug screen and UA. - Diagnoses Differential Diagnosis/HQI/PQRI: Positive: Other - alcohol intoxication Provider Diagnoses: Alcohol intoxication Discharge - Sign-Out/Discharge Documenting (check all that apply): Sign-Out Patient Signing out patient TO: Mich Robertson - Discharge Plan Referrals: No Primary Care Phys,NOPCP [Primary Care Provider] -
[2018-03-07] MEDS ORDERED: LORazepam INJ* 2 MG/ML 1 ML VIAL ONE (04:54)
[2018-03-07] MEDS ORDERED: Haloperidol INJ IV/IM* 5 MG/ML AMP ONE (04:54)
[2018-03-07] MEDS ORDERED: diPHENhydraMINE IV* 50 MG/ML 1 ml VIAL (BENADRYL) ONE (04:54)
[2018-03-07 05:37] LABS: ABS Basophils 0 10^3/ul (0-0.2); ABS Eosinophils 0.1 10^3/ul (0-0.6); ABS Lymphocytes 1.9 10^3/ul (1.0-4.8); ABS Monocytes 0.4 10^3/ul (0-0.8); ABS Neutrophils 5.9 10^3/ul (1.5-7.7); ABS Nucleated RBC 0 10^3/ul; Eosinophil % 1.2 % (0-6); Hematocrit 45 % (42-52); Hemoglobin 15.7 g/dl (14.0-18.0); Lymphocyte % 22.9 % (25-47); Mean Corpuscular HGB Conc 35 g/dl (31-36); Mean Corpuscular Hemoglobin 32 pg (27-31); Mean Corpuscular Volume 93 fL (80-94); Mean Platelet Volume 9.2 um3 (7.4-10.4); Nucleated Red Blood Cells % 0.1; Platelet Count 210 10^3/ul (150-450); Red Blood Count 4.85 10^6/ul (4.00-5.40); Red Cell Distribution Width 13 % (10.5-15); White Blood Count 8.4 10^3/ul (3.5-10.8)
--- NOTE | 2018-03-07 07:06 | ED ---
Course/Dx - Course Course Of Treatment: Mr. Joyce presented on the earlier shift. He was intoxicated and brought in by the police. He may threats of self-harm to the police. He was allowed to sober up and underwent a mental health eval. They felt that he was stable for discharge as he was denying any suicidal or homicidal ideation at that time. - Diagnoses Provider Diagnoses: Alcohol intoxication Discharge - Sign-Out/Discharge Documenting (check all that apply): Patient Departure - discharge - Discharge Plan Condition: Stable Disposition: HOME Patient Education Materials: Alcohol Intoxication (ED) Referrals: No Primary Care Phys,NOPCP [Primary Care Provider] - [facility] [Provider Group] - 3 Days () Additional Instructions: RETURN TO ED FOR ANY NEW OR CHANGING SYMPTOMS. - Billing Disposition and Condition Condition: STABLE Disposition: Home
[2018-03-07 15:04] LABS: Urine Appearance Cloudy; Urine Blood Negative (Negative); Urine Color Yellow; Urine Ketones Negative (Negative); Urine Protein Negative (Negative); Urine Specific Gravity 1.014 (1.010-1.030); Urine Urobilinogen Negative (Negative)
[2018-03-07 17:31] VITALS: BP 137/73
== END 2018-03-07 17:30 | disposition home or self-care (01) ==
LOC: ED 04:26
DX: F10.129 Alcohol abuse with intoxication, unspecified (principal); F17.200 Nicotine dependence, unspecified, uncomplicated; Z59.0 Homelessness
CPT/HCPCS: 36415; 80053; 80307; 80320; 80329; 81003; 84443; 85025; 99285; G0480; J1200; J1630; J2060

== ENCOUNTER 2019-10-29 18:56 | Emergency (ER) | payer SELFPAY ==
[2019-10-29 19:16] VITALS: BP 110/76
--- NOTE | 2019-10-29 19:42 | UC ---
Dental HPI - HPI Summary HPI Summary: 29 yo with toothache x 2 days with a hx of severe decay and gum inflammation. He does not have fever. He is additionally concerned about his arms going numb off and on, as well as his forelegs. He does not have hand dysfunction He occasionally has neck pain, gets headaches related to dental pain. No ataxia or falls. FH is not well known. - History of Current Complaint Chief Complaint: UCDentalProblem Stated Complaint: TOOTHACHE Time Seen by Provider: 10/29/19 19:29 Hx Obtained From: Patient Onset/Duration: Sudden Onset, Lasting Days - 2 Severity: Moderate Pain Intensity: 7 Aggravating Factor(s): Cold, Chewing Alleviating Factor(s): OTC Meds Related History: Previous Dental Care on Same Tooth - Allergies/Home Medications Allergies/Adverse Reactions: Allergies Allergy/AdvReac Type Severity Reaction Status Date / Time No Known Allergies Allergy Verified 10/29/19 19:11 Home Medications: Home Medications Ibuprofen TAB* [Motrin TAB* 800 MG] 800 mg PO ONCE 10/29/19 [History Confirmed 10/29/19] Penicillin VK 500 MG TAB(NF) [Penicillin VK 500 mg Tab] 500 mg PO QID #28 tab [Rx] PMH/Surg Hx/FS Hx/Imm Hx Previously Healthy: Yes - Surgical History Surgical History: None Surgery Procedure, Year, and Place: n/a - Family History Known Family History: Positive: Unknown - father unknown, mother was adopted-- minimal history available to him., Other - cervical CA in mother - Social History Occupation: Employed Full-time Lives: With Family Alcohol Use: Daily Alcohol Amount: 1 beer/ day Substance Use Type: Marijuana Substance Use Comment - Amount & Last Used: occassional Smoking Status (MU): Current Every Day Smoker Amount Used/How Often: 1 PPD - Immunization History Most Recent Influenza Vaccination: Unknown Most Recent Pneumonia Vaccination: Never Review of Systems All Other Systems Reviewed And Are Negative: Yes Constitutional: Positive: Negative Skin: Positive: Negative Eyes: Positive: Negative ENT: Positive: Negative Respiratory: Positive: Negative Cardiovascular: Positive: Negative Gastrointestinal: Positive: Negative Genitourinary: Positive: Negative Motor: Positive: Negative Neurovascular: Positive: Negative Musculoskeletal: Positive: Negative Neurological/Mental Status: Positive: Paresthesia - forearms and forelegs. Psychological: Positive: Negative Is Patient Immunocompromised?: No Physical Exam Triage Information Reviewed: Yes Appearance: Pain Distress - mild to moderate., Thin Vital Signs: Initial Vital Signs Temp 98.4 F 10/29/19 19:11 Pulse 56 10/29/19 19:11 Resp 18 10/29/19 19:11 BP 110/76 10/29/19 19:11 Pulse Ox 100 10/29/19 19:11 Eye Exam: Other - HOWARD, normal eom Eyes: Positive: Conjunctiva Clear ENT: Positive: Pharynx normal Dental: Positive: Gross Decay/Caries @ - extensive decay upper and lower molars bilaterally, with gum inflammation. Mild left cheek swelling. _ tender left submandibular node. Neck: Positive: Supple, Nontender, Enlarged Nodes @ - left submandibular Respiratory: Positive: Lungs clear, Normal breath sounds Cardiovascular: Positive: RRR, No Murmur Musculoskeletal Exam: Normal, Other - full rom in cervical spine. Neurological Exam: Other - No pronator drift, normal Neurological: Positive: Alert, Muscle Tone Normal, Other: - normal gait, negtative romberg. Neg tinel and Phalen's at the wrist. No hand wasting. Skin Exam: Normal Images Dental: 1 - decayed to gum level. Moderate gum inflammation 2 - decay to gum level. Dental Complaint Course/Dx - Course Course Of Treatment: penVK and pain control discussed. Reviewed that work up of paresthesias can be extensive, offered to initiate lab work but he declined. - Differential Dx/Diagnosis Differential Diagnosis/Dx: Dental Abscess, Dental Caries, Fractured Tooth Provider Diagnosis: Dental abscess Discharge ED - Sign-Out/Discharge Documenting (check all that apply): Patient Departure All imaging exams completed and their final reports reviewed: No Studies - Discharge Plan Condition: Stable Disposition: HOME Prescriptions: Penicillin VK 500 MG TAB(NF) [Penicillin VK 500 mg Tab] 500 mg PO QID #28 tab Patient Education Materials: Dental Abscess (ED) Forms: *Work Release Referrals: No Primary Care Phys,NOPCP [Primary Care Provider] - [facility] [Outside] Care [facility] [Outside] Additional Instructions: You hae been prescribed penicillin for treatment of dental infection. It is essential that you establish care with a dentist for treatment. To improve pain control, take ibuprofen 800mg every 8 hours with food, and alternately take acetaminophen 650mg every 6 hours. This will imrpvoe pain control. (please do not combine pain meds with alcohol due to increased risk of side effects.). You have a referral to the [facility] and to our [place] emergency department referral service. Please schedule a visit within several weeks to begin evaluation of your numbness. - Billing Disposition and Condition Condition: STABLE Disposition: Home
== END 2019-10-29 20:21 | disposition home or self-care (01) ==
LOC: UCEAST 18:56
DX: K04.7 Periapical abscess without sinus (principal); F17.210 Nicotine dependence, cigarettes, uncomplicated
CPT/HCPCS: 99212; G0463

== ENCOUNTER 2019-11-03 15:51 | Emergency (ER) | payer MEDICAID ==
[2019-11-03 16:19] VITALS: BP 104/70
--- NOTE | 2019-11-03 16:52 | UC ---
Dental HPI - HPI Summary HPI Summary: 29yo male presents with left upper molar pain and left facial swelling x5 days. Has known gross dental decay. Patient states that he was seen here on 10/29/2019 and given penicillin for treatment. States swelling worsened today. Pain is constant. Denies fever and chills. Denies n/v. Denies decreased ROM of mandible. Taking ibuprofen for pain. - History of Current Complaint Chief Complaint: UCDentalProblem Stated Complaint: DENTAL COMPLAINT Hx Obtained From: Patient Pain Intensity: 7 Pain Scale Used: 0-10 Numeric - Allergies/Home Medications Allergies/Adverse Reactions: Allergies Allergy/AdvReac Type Severity Reaction Status Date / Time No Known Allergies Allergy Verified 11/03/19 16:19 Home Medications: Home Medications Ibuprofen TAB* [Motrin TAB* 800 MG] 800 mg PO ONCE 10/29/19 [History Confirmed 11/03/19] Penicillin VK 500 MG TAB(NF) [Penicillin VK 500 mg Tab] 500 mg PO QID #28 tab [Rx Confirmed 11/03/19] Acetaminophen [Tylenol] 1,000 mg PO ONCE PRN 11/03/19 [History Confirmed ] Clindamycin Cap(NF) [Clindamycin Cap 300 mg Cap(NF)] 300 mg PO Q6H #28 cap 11/02 [Rx] Lidocaine 2% VISCOUS* 100 ml .SEE ORDER Q4H #1 btl 11/03/19 [Rx] PMH/Surg Hx/FS Hx/Imm Hx - Surgical History Surgical History: None Surgery Procedure, Year, and Place: n/a - Family History Known Family History: Positive: Unknown - father unknown, mother was adopted-- minimal history available to him., Other - cervical CA in mother - Social History Alcohol Use: Daily Alcohol Amount: 1 beer/ day Substance Use Type: Marijuana Substance Use Comment - Amount & Last Used: occassional Smoking Status (MU): Heavy Every Day Tobacco Smoker Amount Used/How Often: 1 PPD - Immunization History Most Recent Influenza Vaccination: Unknown Most Recent Pneumonia Vaccination: Never Review of Systems All Other Systems Reviewed And Are Negative: Yes Constitutional: Positive: Negative Skin: Positive: Negative ENT: Positive: Dental Pain - left upper molar Respiratory: Positive: Negative Cardiovascular: Positive: Negative Gastrointestinal: Positive: Negative Musculoskeletal: Positive: Negative Neurological/Mental Status: Positive: Negative Physical Exam Triage Information Reviewed: Yes Appearance: Well-Appearing, No Pain Distress Vital Signs: Initial Vital Signs Temp 98.5 F 11/03/19 16:16 Pulse 82 11/03/19 16:16 Resp 14 11/03/19 16:16 BP 104/70 11/03/19 16:16 Pulse Ox 98 11/03/19 16:16 Vital Signs Reviewed: Yes Eyes: Positive: Conjunctiva Clear ENT: Positive: Hearing grossly normal, Pharynx normal, Dental tenderness - left upper molars Dental: Positive: Percussion Tenderness @ - left upper molars, Gross Decay/ Caries @ - throughout upper and lower b/l molars, Cellulitis @ - left upper gums. Negative: Abscess @ Neck exam: Normal Neck: Positive: Supple, Nontender, Enlarged Nodes @ - left submandibular Respiratory Exam: Normal Respiratory: Positive: Lungs clear, Normal breath sounds, No respiratory distress, No accessory muscle use Cardiovascular Exam: Normal Cardiovascular: Positive: RRR Musculoskeletal: Positive: Edema @ - mild swelling of left cheek Neurological: Positive: Alert Psychological: Positive: Age Appropriate Behavior Skin Exam: Normal Images Dental: 1 - inflammation of gums Dental Complaint Course/Dx - Course Course Of Treatment: I instructed the patient to discontinue use of penicillin for dental abscess. I prescribed clindamycin and instructed to take probiotics or chadian yogurt to prevent infectious diarrhea. I also provided patient with prescription for viscous lidocaine. Instructed to continue with ibuprofen, tylenol, salt water gargles, and warm compresses. Instructed patient to attend appt with dentist set up on Sunday. Educated on s/s of worsening infection and instructed to go to ED if any red flags occur. Patient voiced understanding and agreed with treatment plan. - Differential Dx/Diagnosis Differential Diagnosis/Dx: Dental Abscess, Dental Caries, Gingivitis Provider Diagnosis: Infected dental caries Discharge ED - Sign-Out/Discharge Documenting (check all that apply): Patient Departure All imaging exams completed and their final reports reviewed: No Studies - Discharge Plan Condition: Stable Disposition: HOME Prescriptions: Clindamycin Cap(NF) [Clindamycin Cap 300 mg Cap(NF)] 300 mg PO Q6H #28 cap Lidocaine 2% VISCOUS* 100 ml .SEE ORDER Q4H #1 btl Patient Education Materials: Dental Abscess (ED) Forms: *Work Release Referrals: No Primary Care Phys,NOPCP [Primary Care Provider] - Additional Instructions: Discontinue use of penicillin. Take clindamycin as prescribed. It is recommended that you take an over the counter probiotic or eat chadian yogurt while taking this medication to avoid infectious diarrhea, called C. diff. Use the viscous lidocaine as prescribed. Continue to take ibuprofen and tylenol as directed for pain relief. You may also apply warm compresses to the cheek a few times daily. Be sure to attend your dentist appointment on Sunday for further treatment. Go to the emergency room with any new or worsening symptoms. - Billing Disposition and Condition Condition: STABLE Disposition: Home
== END 2019-11-03 17:25 | disposition home or self-care (01) ==
LOC: UCEAST 15:51
DX: K04.7 Periapical abscess without sinus (principal); F17.210 Nicotine dependence, cigarettes, uncomplicated
CPT/HCPCS: 99212; G0463

== ENCOUNTER 2019-11-04 11:34 | Emergency (ER) | payer MEDICAID, OTHER ==
[2019-11-04] MEDS ORDERED: Clindamycin 600 MG/D5W BAG(*) 600 MG/50 ML BAG IV ONE (13:01)
[2019-11-04] MEDS ORDERED: Ketorolac INJ* 30 MG/ML 1 ML VIAL IV ONE (13:01)
--- NOTE | 2019-11-04 13:06 | ED ---
Throat Pain/Nasal Congestion - HPI Summary HPI Summary: Patient presents to the ED with CC of left sidded - History of Current Complaint Chief Complaint: EDDentalPain Time Seen by Provider: 11/04/19 12:43 - Allergies/Home Medications Allergies/Adverse Reactions: Allergies Allergy/AdvReac Type Severity Reaction Status Date / Time No Known Allergies Allergy Verified 11/04/19 11:38 Home Medications: Home Medications Ibuprofen TAB* [Motrin TAB* 800 MG] 800 mg PO ONCE 10/29/19 [History Confirmed 11/03/19] Penicillin VK 500 MG TAB(NF) [Penicillin VK 500 mg Tab] 500 mg PO QID #28 tab [Rx Confirmed 11/03/19] Acetaminophen [Tylenol] 1,000 mg PO ONCE PRN 11/03/19 [History Confirmed ] Clindamycin Cap(NF) [Clindamycin Cap 300 mg Cap(NF)] 300 mg PO Q6H #28 cap 11/02 [Rx] Lidocaine 2% VISCOUS* 100 ml .SEE ORDER Q4H #1 btl 11/03/19 [Rx] PMH/Surg Hx/FS Hx/Imm Hx Endocrine/Hematology History: Denies: Hx Diabetes, Hx Thyroid Disease Cardiovascular History: Denies: Hx Hypertension Respiratory History: Denies: Hx Asthma, Hx Chronic Obstructive Pulmonary Disease (COPD) GI History: Denies: Hx Ulcer Sensory History: Denies: Hx Contacts or Glasses, Hx Hearing Aid Opthamlomology History: Denies: Hx Contacts or Glasses Psychiatric History: Reports: Hx Anxiety, Hx Depression, Hx of Violent Episodes Against Others Denies: Hx Eating Disorder, Hx Inpatient Treatment, Hx Community Mental Health Tx, Hx Suicide Attempt, Hx Substance Abuse - Surgical History Surgery Procedure, Year, and Place: n/a Infectious Disease History: No Infectious Disease History: Reports: Hx of Known/Suspected MRSA Denies: Hx Hepatitis, Hx Human Immunodeficiency Virus (HIV), Traveled Outside the [place] in Last 30 Days - Family History Known Family History: Positive: Unknown - father unknown, mother was adopted-- minimal history available to him., Other - cervical CA in mother - Social History Alcohol Use: Daily Alcohol Amount: 1 beer/ day Hx Substance Use: No Substance Use Type: Reports: Marijuana Substance Use Comment - Amount & Last Used: occassional Hx Tobacco Use: Yes Smoking Status (MU): Heavy Every Day Tobacco Smoker Amount Used/How Often: 1 PPD Physical Exam Vital Signs On Initial Exam: Initial Vitals Temp Pulse Resp BP Pulse Ox 98.3 F 65 16 121/63 99 11/04/19 11:36 11/04/19 11:36 11/04/19 11:36 11/04/19 11:36 11/04/19 11:36 Diagnostics - Vital Signs Vital Signs Temp Pulse Resp BP Pulse Ox 11/04/19 11:36 98.3 F 65 16 121/63 99 - Laboratory Lab Statement: Any lab studies that have been ordered have been reviewed, and results considered in the medical decision making process. Discharge ED - Discharge Plan Referrals: No Primary Care Phys,NOPCP [Primary Care Provider] -
[2019-11-04 13:32] LABS: ABS Eosinophils 0.1 10^3/ul (0-0.6); ABS Lymphocytes 1.6 10^3/ul (1.0-4.8); ABS Monocytes 0.6 10^3/ul (0-0.8); ABS Neutrophils 4.5 10^3/ul (1.5-7.7); Eosinophil % 1.5 %; Hematocrit 41 % (42-52); Hemoglobin 14.5 g/dL (14.0-18.0); Lymphocyte % 23.7 %; Mean Corpuscular HGB Conc 36 g/dL (31-36); Mean Corpuscular Hemoglobin 33 pg (27-31); Mean Corpuscular Volume 92 fL (80-94); Mean Platelet Volume 9.1 fL (7.4-10.4); Platelet Count 203 10^3/uL (150-450); Red Blood Count 4.47 10^6 /uL (4.18-5.48); Red Cell Distribution Width 13 % (10-15); White Blood Count 6.9 10^3/uL (3.5-10.8)
[2019-11-04 13:42] LABS: Albumin/Globulin Ratio 1.5 (1-3); BUN/Creatinine Ratio 16.4 (8-20); C Reactive Protein 23.6 mg/L (<8.01); Calcium 9.1 mg/dL (8.6-10.3); EGFR African American 153.7 (>60); Globulin 2.6 g/dL (2-4); Potassium 4.1 mmol/L (3.5-5.0); Total Bilirubin 0.3 mg/dL (0.2-1.0); Total Protein 6.6 g/dL (6.4-8.9)
[2019-11-04] MEDS ORDERED: Iohexol 300* (CONTRAST) 10 ML SDV IV ONE (14:03)
[2019-11-04 15:00] VITALS: BP 121/64
== END 2019-11-04 15:00 | disposition home or self-care (01) ==
LOC: ED 11:34
DX: F41.9 Anxiety disorder, unspecified (principal); F32.9 Major depressive disorder, single episode, unspecified; F17.210 Nicotine dependence, cigarettes, uncomplicated; Z79.899 Other long term (current) drug therapy
CPT/HCPCS: 36415; 70487; 80053; 85025; 86140; 99282; J1885; Q9967

== ENCOUNTER 2020-08-21 11:33 | Inpatient (IN) ==
[2020-08-21] MEDS ORDERED: NS 0.9% 1000 ml BAG 1,000 ML IV SCH (12:15)
[2020-08-21 12:26] LABS: ABS Eosinophils 0.1 10^3/ul (0-0.6); ABS Lymphocytes 1.7 10^3/ul (1.0-4.8); ABS Monocytes 0.9 10^3/ul (0-0.8); ABS Neutrophils 10.3 10^3/ul (1.5-7.7); Eosinophil % 0.6 %; Hematocrit 51 % (42-52); Hemoglobin 17.5 g/dL (14.0-18.0); Lymphocyte % 13.1 %; Mean Corpuscular HGB Conc 34 g/dL (31-36); Mean Corpuscular Hemoglobin 31 pg (27-31); Mean Corpuscular Volume 91 fL (80-94); Mean Platelet Volume 9.4 fL (7.4-10.4); Nucleated Red Blood Cells % 0.1; Platelet Count 254 10^3/uL (150-450); Red Blood Count 5.62 10^6 /uL (4.18-5.48); Red Cell Distribution Width 13 % (10-15)
[2020-08-21 12:36] LABS: ALT 20 U/L (7-52); AST 23 U/L (13-39); Albumin 4.6 g/dL (3.2-5.2); Albumin/Globulin Ratio 1.7 (1-3); Alkaline Phosphatase 53 U/L (34-104); Anion Gap 11 mmol/L (2-11); Blood Urea Nitrogen 14 mg/dL (6-24); CO2 Carbon Dioxide 27 mmol/L (22-32); Calcium 9.8 mg/dL (8.6-10.3); Chloride 100 mmol/L (101-111); Creatine Kinase 140 U/L (10-223); EGFR African American 106.2 (>60); EGFR Non-African American 87.7 (>60); Globulin 2.7 g/dL (2-4); Glucose 100 mg/dL (70-100); Potassium 3.8 mmol/L (3.5-5.0); Sodium 138 mmol/L (135-145); Total Protein 7.3 g/dL (6.4-8.9)
[2020-08-21 12:45] LABS: Acetaminophen < 15 mcg/mL; Alcohol, S < 10 mg/dL (<10)
[2020-08-21 13:00] LABS: TSH Ultra Thyroid Stim Horm 1.17 mcIU/mL (0.34-5.60)
[2020-08-21] MEDS ORDERED: Magnesium Sulfate 2 gm BAG 2 GM/50 ML BAG IVPB ONE (13:41)
[2020-08-21 15:26] LABS: Urine Appearance Cloudy; Urine Bilirubin Negative (Negative); Urine Blood Negative (Negative); Urine Color Yellow; Urine Glucose Negative (Negative); Urine Ketones 2+ (Negative); Urine Nitrite Negative (Negative); Urine Protein 2+(100 mg/dL) (Negative); Urine Specific Gravity 1.021 (1.010-1.030); Urine Urobilinogen Negative (Negative)
[2020-08-21 15:32] LABS: Urine Bacteria Absent (Absent); Urine Red Blood Cell Absent (Absent); Urine Squamous Epithelial Cell Present (Absent); Urine White Blood Cell Trace(0-5/hpf) (Absent)
[2020-08-21 15:41] LABS: Urine Benzodiazepine Screen None Detected (None Detect); Urine Cannabinoids Screen None Detected (None Detect); Urine Opiates Screen None Detected (None Detect)
[2020-08-21] MEDS ORDERED: Nicotine GUM 2MG FRUIT FLAVOR PO PRN (23:00)
[2020-08-22] MEDS: Vitamin THERAPEUTIC TAB PO SCH (10:02)
[2020-08-22] MEDS: Nicotine PATCH 21 MG/24 HR PATCH TRANSDERM SCH ×2 (10:02→10:05)
[2020-08-22] MEDS: Al Hydrox/Mg Hydrox/Simet LIQ 30 ML UDC PO PRN (16:03)
[2020-08-22 22:55] LABS: Hematocrit 47 % (42-52); Hemoglobin 15.9 g/dL (14.0-18.0); Mean Corpuscular HGB Conc 34 g/dL (31-36); Mean Corpuscular Hemoglobin 31 pg (27-31); Mean Corpuscular Volume 92 fL (80-94); Mean Platelet Volume 9.1 fL (7.4-10.4); Platelet Count 230 10^3/uL (150-450); Red Blood Count 5.13 10^6 /uL (4.18-5.48); Red Cell Distribution Width 13 % (10-15)
[2020-08-22 23:13] LABS: ABS Eosinophils 0.1 10^3/ul (0-0.6); ABS Lymphocytes 1.9 10^3/ul (1.0-4.8); ABS Monocytes 1.6 10^3/ul (0-0.8); ABS Neutrophils 14.4 10^3/ul (1.5-7.7); Eosinophil % 0.4 %; Lymphocyte % 10.7 %
[2020-08-23 00:12] LABS: ALT 14 U/L (7-52); AST 13 U/L (13-39); Albumin/Globulin Ratio 1.5 (1-3); Alkaline Phosphatase 49 U/L (34-104); Amylase 35 U/L (29-103); Anion Gap 8 mmol/L (2-11); BUN/Creatinine Ratio 14.3 (8-20); Blood Urea Nitrogen 12 mg/dL (6-24); CO2 Carbon Dioxide 32 mmol/L (22-32); Calcium 9.4 mg/dL (8.6-10.3); Chloride 97 mmol/L (101-111); EGFR African American 129.8 (>60); EGFR Non-African American 107.3 (>60); Globulin 2.6 g/dL (2-4); Glucose 120 mg/dL (70-100); Lipase < 10 U/L (11.0-82.0); Potassium 3.4 mmol/L (3.5-5.0); Sodium 137 mmol/L (135-145); Total Protein 6.6 g/dL (6.4-8.9)
[2020-08-23] MEDS ORDERED: Potassium Chloride LIQUID 20 MEQ/15 ML LIQUID PO ONE (00:27)
[2020-08-23] MEDS ORDERED: Iohexol 300 (CONTRAST) 10 ML SDV IV ONE (00:42)
[2020-08-23] MEDS: Sucralfate 1 gm SUSP 1 GM/10 ML UDC PO SCH ×5 (02:17→22:05)
[2020-08-23] MEDS: Al Hydrox/Mg Hydrox/Simet LIQ 30 ML UDC PO PRN (07:54)
[2020-08-23 08:04] LABS: HDL Cholesterol 42.6 mg/dL
[2020-08-23] MEDS: Nicotine PATCH 21 MG/24 HR PATCH TRANSDERM SCH (10:18)
[2020-08-23] MEDS: Vitamin THERAPEUTIC TAB PO SCH (10:18)
[2020-08-23] MEDS: Lansoprazole SUSP ORALSYR 3 MG/ML PO SCH (11:37)
[2020-08-24] MEDS: Sucralfate 1 gm SUSP 1 GM/10 ML UDC PO SCH ×4 (11:49→20:10)
[2020-08-24] MEDS: Lansoprazole SUSP ORALSYR 3 MG/ML PO SCH (11:50)
[2020-08-24] MEDS: Vitamin THERAPEUTIC TAB PO SCH (11:51)
[2020-08-24] MEDS: Nicotine PATCH 21 MG/24 HR PATCH TRANSDERM SCH (11:51)
[2020-08-24] MEDS ORDERED: fentaNYL 100 mcg/2 ml 50 MCG/ML VIAL ONE (15:34)
[2020-08-24] MEDS ORDERED: Midazolam 10 mg/10 ml VIAL 1 mg/ml 10 ml VIAL (10 mg) ONE (15:34)
[2020-08-24] MEDS ORDERED: NS 0.9% 1000 ml BAG 1,000 ML IV SCH (17:57)
[2020-08-24 18:49] LABS: ABS Eosinophils 0.1 10^3/ul (0-0.6); ABS Lymphocytes 2.3 10^3/ul (1.0-4.8); ABS Neutrophils 10.6 10^3/ul (1.5-7.7); Eosinophil % 0.8 %; Hematocrit 44 % (42-52); Hemoglobin 15.3 g/dL (14.0-18.0); Lymphocyte % 16.1 %; Mean Corpuscular HGB Conc 35 g/dL (31-36); Mean Corpuscular Hemoglobin 31 pg (27-31); Mean Corpuscular Volume 91 fL (80-94); Mean Platelet Volume 9.2 fL (7.4-10.4); Platelet Count 212 10^3/uL (150-450); Red Blood Count 4.87 10^6 /uL (4.18-5.48); Red Cell Distribution Width 13 % (10-15); White Blood Count 13.9 10^3/uL (3.5-10.8)
[2020-08-24 19:01] LABS: ALT 11 U/L (7-52); Albumin 3.8 g/dL (3.2-5.2); Albumin/Globulin Ratio 1.5 (1-3); Alkaline Phosphatase 40 U/L (34-104); BUN/Creatinine Ratio 18.2 (8-20); Blood Urea Nitrogen 14 mg/dL (6-24); C Reactive Protein 51.84 mg/L (<8.01); CO2 Carbon Dioxide 32 mmol/L (22-32); Calcium 8.6 mg/dL (8.6-10.3); Chloride 98 mmol/L (101-111); EGFR African American 143.5 (>60); EGFR Non-African American 118.6 (>60); Globulin 2.6 g/dL (2-4); Glucose 109 mg/dL (70-100); Lipase < 10 U/L (11.0-82.0); Sodium 133 mmol/L (135-145); Total Protein 6.4 g/dL (6.4-8.9)
[2020-08-24 19:03] LABS: Anion Gap 3 mmol/L (2-11)
[2020-08-24 19:47] LABS: ABS Basophils 0.1 10^3/ul (0-0.2); ABS Eosinophils 0.1 10^3/ul (0-0.6); ABS Lymphocytes 1.8 10^3/ul (1.0-4.8); ABS Monocytes 1.1 10^3/ul (0-0.8); Eosinophil % 0.8 %; Hematocrit 41 % (42-52); Hemoglobin 13.8 g/dL (14.0-18.0); Mean Corpuscular HGB Conc 34 g/dL (31-36); Mean Corpuscular Hemoglobin 31 pg (27-31); Mean Corpuscular Volume 91 fL (80-94); Platelet Count 202 10^3/uL (150-450); Red Blood Count 4.47 10^6 /uL (4.18-5.48); Red Cell Distribution Width 13 % (10-15); White Blood Count 13.1 10^3/uL (3.5-10.8)
[2020-08-24 19:59] LABS: Activated Partial Thrombo Time 28.5 seconds (26.0-38.0); INR 1.22 (0.82-1.09)
[2020-08-24 20:06] LABS: EGFR African American 155.1 (>60); EGFR Non-African American 128.2 (>60); Potassium Redraw 3.7 mmol/L (3.5-5.0)
[2020-08-24] MEDS: Pantoprazole VIAL 40 MG VIAL IV SCH (21:12)
[2020-08-24] MEDS: Heparin 5000 UNITS/ML 1 mL VIAL SUBCUT SCH (21:12)
[2020-08-25] MEDS: Heparin 5000 UNITS/ML 1 mL VIAL SUBCUT SCH ×2 (06:05→15:33)
[2020-08-25] MEDS: Sucralfate 1 gm SUSP 1 GM/10 ML UDC PO SCH ×4 (07:24→21:01)
[2020-08-25] MEDS: Pantoprazole VIAL 40 MG VIAL IV SCH (08:40)
[2020-08-25] MEDS: Nicotine PATCH 21 MG/24 HR PATCH TRANSDERM SCH (08:40)
[2020-08-25] MEDS: Vitamin THERAPEUTIC TAB PO SCH (08:40)
[2020-08-25] MEDS ORDERED: Influenza VAC *QUAD* 2020-21* 0.5 ML SYRINGE IM ONE (09:00)
[2020-08-25] MEDS ORDERED: Ondansetron 4 mg VIAL 2 MG/ML 2 ml VIAL IV PRN (10:51)
[2020-08-25] MEDS ORDERED: Al Hydrox/Mg Hydrox/Simet LIQ 30 ML UDC PO PRN (14:20)
[2020-08-25 20:18] VITALS: BP 112/59
[2020-08-26] MEDS: Sucralfate 1 gm SUSP 1 GM/10 ML UDC PO SCH (07:57)
[2020-08-26] MEDS ORDERED: Vitamin THERAPEUTIC TAB PO SCH (09:00)
[2020-08-26] MEDS ORDERED: Nicotine PATCH 21 MG/24 HR PATCH TRANSDERM SCH (09:00)
== END 2020-08-26 12:00 | disposition home or self-care (01) | DRG 241 ==
LOC: ED 11:33 → BSU 21:50 → MEDTELE 08-24 17:54 → UNDODISIN 08-25 13:45 → BSU 08-25 14:20
PROVIDERS: ADMIT Psychiatry & Neurology Psychiatry; ATTEND Psychiatry & Neurology Psychiatry

== ENCOUNTER 2020-10-14 04:41 | Inpatient (IN) ==
[2020-10-14 05:56] LABS: ABS Lymphocytes 2.4 10^3/ul (1.0-4.8); ABS Neutrophils 7.5 10^3/ul (1.5-7.7); Eosinophil % 0.2 %; Hematocrit 49 % (42-52); Hemoglobin 16.6 g/dL (14.0-18.0); Mean Corpuscular HGB Conc 34 g/dL (31-36); Mean Corpuscular Hemoglobin 31 pg (27-31); Mean Corpuscular Volume 90 fL (80-94); Mean Platelet Volume 9.3 fL (7.4-10.4); Platelet Count 292 10^3/uL (150-450); Red Blood Count 5.42 10^6 /uL (4.18-5.48); Red Cell Distribution Width 13 % (10-15)
[2020-10-14 06:07] LABS: ALT 17 U/L (7-52); AST 20 U/L (13-39); Acetaminophen < 15 mcg/mL; Albumin 4.8 g/dL (3.2-5.2); Albumin/Globulin Ratio 1.7 (1-3); Alcohol, S < 10 mg/dL (<10); Alkaline Phosphatase 55 U/L (34-104); Anion Gap 10 mmol/L (2-11); BUN/Creatinine Ratio 13.5 (8-20); Blood Urea Nitrogen 13 mg/dL (6-24); CO2 Carbon Dioxide 26 mmol/L (22-32); Calcium 9.8 mg/dL (8.6-10.3); Chloride 103 mmol/L (101-111); EGFR African American 111.3 (>60); Globulin 2.8 g/dL (2-4); Glucose 99 mg/dL (70-100); Potassium 3.4 mmol/L (3.5-5.0); Salicylate < 2.50 mg/dL (<30); Sodium 139 mmol/L (135-145); Total Protein 7.6 g/dL (6.4-8.9)
[2020-10-14 06:21] LABS: TSH Ultra Thyroid Stim Horm 2.37 mcIU/mL (0.34-5.60)
[2020-10-14 10:08] LABS: HIV 4th Generation Nonreactive (Nonreactive)
[2020-10-14] MEDS ORDERED: Al Hydrox/Mg Hydrox/Simet LIQ 30 ML UDC PO PRN (10:47)
[2020-10-14] MEDS ORDERED: Nicotine GUM 2MG FRUIT FLAVOR PO PRN (10:47)
[2020-10-14] MEDS ORDERED: Nicotine PATCH 14 MG/24 HR PATCH TRANSDERM SCH ×2 (11:00→15:00)
[2020-10-14 11:07] LABS: Urine Appearance Cloudy; Urine Benzodiazepine Screen None Detected (None Detect); Urine Bilirubin Negative (Negative); Urine Blood Negative (Negative); Urine Cannabinoids Screen None Detected (None Detect); Urine Color Yellow; Urine Glucose Negative (Negative); Urine Ketones 1+ (Negative); Urine Nitrite Negative (Negative); Urine Opiates Screen None Detected (None Detect); Urine Protein Negative (Negative); Urine Specific Gravity 1.019 (1.010-1.030); Urine Urobilinogen Negative (Negative)
[2020-10-15] MEDS ORDERED: Vitamin THERAPEUTIC TAB PO SCH (09:00)
[2020-10-15 11:00] VITALS: BP 95/57
== END 2020-10-15 14:45 | disposition home or self-care (01) | DRG 754 ==
LOC: ED 04:41 → BSU 10:47 → ED 14:20
PROVIDERS: ADMIT Psychiatry & Neurology Psychiatry; ATTEND Psychiatry & Neurology Psychiatry